=== PATIENT | female | born 1975 | race Caucasian/White ===

== ENCOUNTER 2019-12-23 11:32 | Outpatient (CLI) | payer OTHER, SELFPAY ==
--- NOTE | 2019-12-23 12:00 | CT_ITS ---
WS: [id number] CT CERVICAL SPINE HISTORY: paresthesias both hands TECHNIQUE: Contiguous 2.5 mm axial imaging performed through the entire cervical spine. Sagittal and coronal reformats also performed. All CT scans at [facility] use at least one of these do se optimization techniques: automated exposure control; mA and/or kV adjustment per patient size (inc ludes targeted exams where dose is matched to clinical indication); or iterative reconstruction. DLP: 1606.48 mGycm COMPARISON: 11/10/2016 Prior anterior cervical fusion from C4 through C6. Interbody spacers at C4-5 and C5-6. Fusion across the interbody spacers is complete since 2016. No lucency around the screws or fracture is identified. No subsidence of interbody spacers. Mild straightening of the normal cervical lordosis. Craniocervical junction is normal. Alignment of C1 and C2 is intact. There is a very slight RIGHT con vex curvature of the cervical spine. C2-C3: Normal. C3-C4: Small vertebral body osteophytes without significant stenosis. C4-C5: Small vertebral body osteophytes with minimal narrowing of the LEFT foramen. No change since t he prior study. C5-C6: Mild osteophytic ridging with mild bilateral foraminal narrowing. Minimal progression if any s matilde the prior study. C6-C7: Mild osteophytic ridging. No significant stenosis. C7-T1: Normal. Soft tissues are normal. Lung apices are clear. CT/CT cervical spin wo con* [id number] IMPRESSION: 1. Prior anterior cervical fusion with interbody spacers from C4 to C6 is inta ct. No complications are evident. 2. Small vertebral body osteophytes from C3-4 through C6-7. No significant derek nosis. Mild LEFT foraminal narrowing at C4-5 and bilaterally at C5-6. No signif icant progression since the prior study. No disc herniations.
== END 2019-12-23 11:33 | disposition home or self-care (01) ==
LOC: RADWPI 11:35
PROVIDERS: Family Provider Family Medicine; PCP Family Medicine; Visit Provider Family Medicine
DX: R20.2 Paresthesia of skin (principal); Z98.1 Arthrodesis status; M25.78 Osteophyte, vertebrae
CPT/HCPCS: 72125

== ENCOUNTER 2020-01-26 11:24 | Outpatient (CLI) | payer OTHER, SELFPAY ==
--- NOTE | 2020-01-26 11:42 | MR_ITS ---
WS: [id number] MRI CERVICAL SPINE HISTORY: Neck pain. S/P fusion/fixation COMPARISON: 04/11/2016 Straightening of the normal cervical lordosis. Prior anterior cervical fusion from C4 through C6. No edema around the hardware. Signal within the cervical cord is normal. Visualized posterior fossa is unremarkable. Craniocervical junction, C1 and C2 relationship, odontoid process and soft tissues are normal. C2-C3: Normal. C3-C4: Mild annular disc bulging without significant stenosis. C4-C5: Mild osteophytic ridging. Small osteophyte encroaches into the LEFT foramen but no significant stenosis. Mild LEFT foraminal stenosis. C5-C6: Small vertebral body osteophytes without stenosis. Mild bilateral foraminal stenosis due to os teophyte disease. C6-C7: Mild osteophytic ridging with a very shallow central disc protrusion. C7-T1: Normal. Paraspinal soft tissue are normal. MR/MR cervical spin wo con* [id number] IMPRESSION: 1. Prior anterior cervical fusion with interbody spacers from C4 through C6. 2. Mild straightening of the normal cervical lordosis. 3. Mild annular disc bulging and osteophytic ridging at C3-4 with very slight effacement of ventral CSF. 4. Small LEFT paracentral disc protrusion at C6-7. 5. Small osteophyte encroachment into the LEFT C4-5 foramen without significan t stenosis.
== END 2020-01-26 11:25 | disposition home or self-care (01) ==
LOC: RADSHAW 11:25
PROVIDERS: Family Provider Family Medicine; PCP Family Medicine; Visit Provider Licensed Practical Nurse
DX: M96.1 Postlaminectomy syndrome, not elsewhere classified (principal); Z98.1 Arthrodesis status; M50.223 Other cervical disc displacement at C6-C7 level; M25.78 Osteophyte, vertebrae
CPT/HCPCS: 72141

== ENCOUNTER 2020-01-26 12:51 | Outpatient (CLI) | payer OTHER, SELFPAY ==
--- NOTE | 2020-01-26 12:56 | XR_ITS ---
WS: [id number] XR cervical spine fl/ex [id number] REASON FOR EXAM: Neck pain FINDINGS: There is evidence of anterior fusion C4-C5-C6 with interspinal fusion satisfactory aligned. The flexion extension views show motion in this area. XR/XR cervical spine fl/ex [id number] IMPRESSION: Anterior fusion C4-C5-C6 There is motion in flexion and extension.
== END 2020-01-26 12:52 | disposition home or self-care (01) ==
LOC: RAD 12:53
PROVIDERS: Family Provider Family Medicine; PCP Family Medicine; Visit Provider Licensed Practical Nurse
DX: M96.1 Postlaminectomy syndrome, not elsewhere classified (principal); Z98.1 Arthrodesis status
CPT/HCPCS: 72040

== ENCOUNTER 2021-02-24 15:40 | Emergency (ER) | payer BC, SELFPAY ==
[2021-02-24 15:41] VITALS: BP 128/78; PULSE 124; RESP 22; O2SAT 95; BMI 32.5
--- NOTE | 2021-02-24 15:42 | XRR_ITS ---
PROCEDURE INFORMATION: Exam: XR Chest Exam date and time: 02/24/2021 3:47 PM Age: 45 years old Clinical indication: Other: Allergic reaction; Additional info: Dyspnea TECHNIQUE: Imaging protocol: XR of the chest Views: 1 view. Total images: 1 COMPARISON: CR Chest 1 [place] [id number] 12/12/2015 8:32 PM FINDINGS: Lungs: No visible active interstitial or alveolar airspace disease. Pleural spaces: Unremarkable. No pleural effusion. No pneumothorax. Heart/Mediastinum: Unremarkable. No cardiomegaly. Bones/joints: Cervical fusion. XR/XR chest 1V portable [id number] IMPRESSION: Nonacute.
--- NOTE | 2021-02-24 15:50 | ED_ITS ---
HPI - Allergic Reaction General: Chief complaint: Allergic Reaction Stated complaint: allergic reaction Time Seen by Provider: 02/24/21 15:42 History of Present Illness: HPI narrative: Is a 45-year-old female with past medical history allergy to amoxicillin comes to the ER after she was given Augmentin for a left ear infection less than an hour ago. She took the Augmentin and within 10 to 15 minutes she began to feel itchy and developed a severe rash and a few minutes later difficulty breathing. She took 225 mg Benadryl's around that time and came to the ER. On arrival she had difficulty speaking and had a diffuse erythematous rash and was itching. She thinks it has been 20 to 30 minutes since she took the Benadryl. A few minutes after she arrived in the ER her symptoms greatly improved likely the Benadryl she took is kicking in. She is now talking full sentences and has no breathing difficulty whatsoever. She still has a rash which is improving some already. MD complaint: allergic reaction and hives Onset (ago): minute(s) (30) Exposure: medication Associated symptoms: Reports no associated symptoms, difficulty breathing, hoarseness, itching and rash; Deny abdominal pain, dizziness or tongue swelling Severity: severe Treatment prior to arrival: benadryl Previous Allergic Reaction History: anaphylaxis and angioedema Review of Systems General: Reports: 10 or more systems reviewed and unremarkable except in HPI and below Const: Denies: fatigue Eyes: Denies: change in vision, blurry vision or eye redness ENMT: Reports: hoarseness Card: Denies: chest pain, palpitations, irregular heart rhythm, edema, dyspnea on exertion or orthopnea Resp: Denies: dyspnea, productive cough or non-productive cough GI: Denies: abdominal pain, diarrhea or GI cramping : Denies: flank pain, difficulty voiding, urinary frequency or urinary urgency Musc: Denies: neck pain, back pain, extremity pain, joint pain, joint redness, limited range of motion or muscle weakness Skin/Breast: Denies: rash, pruritus, erythema, skin pain or skin tenderness Neuro: Denies: headache(s), numbness in extremities, weakness in extremities, sensory changes, difficulty walking, dizziness, confusion or Slurred speech present Psych: Denies: anxiety or depression Endo: Denies: polyuria All/Imm: Reports: urticaria and throat swelling; Denies: tongue swelling PFSH ED PFSH: Medical History History of breast lump Surgical History History of delivery History of cholecystectomy History of oophorectomy right ear History of spinal fusion 09/03/2016 Dr. 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 She has a very hoarse voice on arrival and appears to be in mild to moderate respiratory distress. Within a few minutes her respiratory distress resolved and she was speaking full sentences. Also her rash is moderately better. Likely the Benadryl she took is kicking in Const: COMMON NORMALS: average body habitus, patient oriented x3, alert and well nourished GENERAL APPEARANCE: well kempt, well developed, in distress and ill appearing ORIENTATION/CONSCIOUSNESS: Yes awake, Yes oriented to person, Yes oriented to place and Yes oriented to time HENMT: COMMON NORMALS: normocephalic, external ears normal and Normal external nose present HEAD & SCALP: normal to inspection and normocephalic NOSE: Normal external nose present EXTERNAL EAR: Yes external ears normal MOUTH: Normal oral and palatal mucosa present THROAT: posterior oropharynx normal Eye: COMMON NORMALS: Equal, round and reactive pupils present and EOMs intact bilaterally GENERAL EYE: appearance normal, both eyes and all related structures PUPIL: Yes Equal, round and reactive pupils present Neck/C-Spine: COMMON NORMALS: full ROM, no lymphadenopathy, no meningeal signs and no JVD GENERAL: Yes normal visual inspection Lymph: LYMPHATIC: no lymphadenopathy noted Chest: COMMONS NORMALS: normal inspection of the chest and normal palpation of entire chest wall Resp: COMMON NORMALS: normal respiratory effort, No retractions, No use of accessory muscles and percussion normal EFFORT & INSPECTION: Yes able to speak in complete sentences AUSCULTATION: diminished lung sounds PERCUSSION: percussion normal Cardio: COMMON NORMALS: no JVD, regular rate, regular rhythm, S1 normal heart sound present, S2 normal heart sound present and Peripheral pulses 2+ throughout RATE: regular rate RHYTHM: regular rhythm HEART SOUNDS: S1 normal heart sound present and S2 normal heart sound present PERIPHERAL PULSES: Peripheral pulses 2+ throughout GI: COMMON NORMALS: Normal to inspection, nondistended, normoactive bowel sounds present, Soft to palpation, non-tender and no masses INSPECTION: Yes normal to inspection PALPATION: Yes Soft to palpation : COMMON NORMALS: Yes no CVA tenderness BLADDER/KIDNEY EXAM: Yes no CVA tenderness Back/Pelvis: COMMON NORMALS: no CVA tenderness, thoracic and lumbar spine normal to inspection, no thoracic nor lumbar tenderness and thoraco-lumbar ROM normal Extremity: COMMON NORMALS: normal to inspection, full ROM, capillary refill normal, no joint enlargement and no pedal edema GENERAL: Yes normal exam except as noted Neuro: COMMON NORMALS: patient oriented x3, CN's II-XII intact bilaterally, moves all extremities, no focal motor deficits, no sensory deficits noted and gait normal SENSORIUM/ORIENTATION: Yes alert, Yes oriented to person, Yes oriented to place and Yes oriented to time MENINGEAL SIGNS: Yes no meningeal signs Psych: COMMON NORMALS: mental status grossly normal, Normal thought process present, cooperative, normal affect and speech normal APPEARANCE: Yes well kempt ATTITUDE: Yes calm SPEECH: Yes normal speech THOUGHT PROCESS: Normal thought process present Skin: COMMON NORMALS: no rashes or lesions noted GENERAL SKIN EXAM: no rashes or lesions noted Course Vital Signs: Vital signs: Vital Signs Pulse Rate 97 02/24/21 17:56 Respiratory Rate 17 02/24/21 17:52 Blood Pressure 128/78 02/24/21 15:41 Pulse Oximetry 97 02/24/21 17:52 MDM - Allergic Reaction MDM Narrative: Medical decision making narrative: Early after arrival the patient's 50 mg of Benadryl she took orally before her arrival started to kick in and her shortness of breath resolved quickly. She was given more IV Benadryl, famotidine, Solu-Medrol, and a liter of fluids. Her symptoms completely resolved and she is at her baseline. Recommended she never take amoxicillin or Augmentin again. Discussed how to use the EpiPen with her on discharge. She will also keep Benadryl with her for future episodes and to treat today's episode. Lab Data: Labs: Lab Results 02/24/21 02/24/21 02/24/21 Range/Units 16:04 16:04 16:04 WBC 14.8 H (4.0-10.0) 10^3/ uL RBC 4.67 (4.1-5.3) 10^6/u L Hgb 14.2 (11.5-15.3) g/dL Hct 43.2 (37.0-47.0) % MCV 92.5 (81-99) fL MCH 30.4 (28.0-34.0) pg MCHC 32.9 (30.0-36.0) g/dL RDW 12.7 (12.1-15.1) % Plt Count 254 (130-400) 10^3/c mm MPV 12.3 H (7.4-10.4) fL Neut % (Auto) 49.2 % Lymph % (Auto) 42.8 % [place] % (Auto) 6.6 % Eos % (Auto) 0.5 % Baso % (Auto) 0.5 % Neut # (Auto) 7.26 (1.8-7.7) 10^3/u L Lymph # (Auto) 6.3 H (0.8-4.8) 10^3/u L [place] # (Auto) 1.0 H (0.2-0.9) 10^3/u L Eos # (Auto) 0.1 (0.0-0.8) 10^3/u L Baso # (Auto) 0.1 (0.0-0.1) 10^3/u L Nucleated RBC % (a uto) 0 % Nucleated RBCs # 0.0 /100WBC Sodium 139 (136-145) mmol/L Potassium 3.9 (3.5-5.1) mmol/L Chloride 105 (98-107) mmol/L Carbon Dioxide 21 L (22-29) mmol/L Anion Gap 16.9 (5-19) BUN 14 (6-20) mg/dL Creatinine 0.9 (0.5-0.9) mg/dL GFR Calculation 68.3 L (90-130) mL/min Glucose 124 H (65-115) mg/dL Calculated Osmolal ity 290 (285-295) mOsm/k g Lactate 2.9 H (0.5-2.2) mmol/L Calcium 9.6 (8.5-10.5) mg/dL Total Bilirubin 0.2 (0.15-1.2) mg/dL AST 17 (0-32) U/L ALT 15 (0-33) U/L Alkaline Phosphata se 60 (35-105) IU/L Total Protein 7.2 (6.6-8.7) g/dL Albumin 4.3 (3.5-5.2) g/dL Globulin 2.9 (1.3-4.6) g/dL Discharge Plan Discharge Patient Disposition: Home Clinical Impression: Angioedema Condition: Stable Prescriptions: New Medrol (Jorge Alberto) 4 mg tablets,dose pack See Rx Instructions .ROUTE .COMPLEX Qty: 21 RF: 0 EpiPen 2-Jorge Alberto 0.3 mg/0.3 mL auto-injector 0.3 mg IM Q10M PRN (Reason: anaphylaxis) Qty: 2 RF: 0 No Action [id number] 2-200 gram-mcg tablet,chewable PO RF: 0 melatonin 1 mg tablet 1 mg PO ONCE RF: 0 acetaminophen [Tylenol] 325 mg capsule 325 mg PO ONCE PRNRF: 0 baclofen 20 mg tablet 20 mg PO BID 30 Days Qty: 60 RF: 3 Estroven Cmplt Menopause Rlf 4 mg tablet 4 mg PO DAILY RF: 0 triamcinolone acetonide 0.1 % cream 1 applic topical BID Qty: 80 RF: 0 methylprednisolone [Medrol (Jorge Alberto)] 4 mg tablets,dose pack See Rx Instructions PO PER PKG DIR Qty: 21 RF: 0 Discharge Orders: Discharge ED (Routine); Ordered 02/24/21 Ordered By: Otis Blackwood Referrals: Mateus Murrieta MD [Primary Care Provider] - Discharge Diet: Advance as tolerated Discharge Activity: Resume usual activity Patient Instructions: Angioedema (ED), Opioid Safety Activity Restrictions/Additional Instructions: You have had a severe allergic reaction called angioedema because it involves yo ur airway. Please keep Benadryl handy with you and the EpiPen must be brought with you everywhere. Avoid amoxicillin and Augmentin for the rest of your life. You may take Benadryl today every 4 hours to help with your symptoms and I am prescribing you a steroid pack to help with your symptoms as well. Please return to the ER with any worsening symptoms follow-up with your primary care physician in a couple days to monitor improvement and return to the ER at anytime with worsening symptoms. 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
[2021-02-24 15:55] VITALS: PULSE 108; RESP 20; O2SAT 95
[2021-02-24] MEDS: famotidine 20 mg/2 mL INJ 40 MG IVP (15:57)
[2021-02-24] MEDS: sodium chloride 0.9% 1,000 ML 999 ML IV (15:58)
[2021-02-24] MEDS: diphenhydrAMINE 50 mg/mL SDV 1mL 25 MG IVP (16:00)
[2021-02-24 16:01] VITALS: PULSE 95; RESP 20; O2SAT 95
[2021-02-24 16:20] LABS: Basophils # 0.1 10^3/uL (0.0-0.1); Basophils % 0.5 %; Eosinophils # 0.1 10^3/uL (0.0-0.8); Eosinophils % 0.5 %; Hematocrit 43.2 % (37.0-47.0); Hemoglobin 14.2 g/dL (11.5-15.3); Lymphocytes # 6.3 10^3/uL (0.8-4.8); Lymphocytes % 42.8 %; Mean Corpuscular HGB Conc 32.9 g/dL (30.0-36.0); Mean Corpuscular Hemoglobin 30.4 pg (28.0-34.0); Mean Corpuscular Volume 92.5 fL (81-99); Mean Platelet Volume 12.3 fL (7.4-10.4); Monocytes % 6.6 %; Neutrophils # 7.26 10^3/uL (1.8-7.7); Neutrophils % 49.2 %; Nucleated Red Blood Cells % 0 %; Platelet Count 254 10^3/cmm (130-400); Red Blood Count 4.67 10^6/uL (4.1-5.3); Red Cell Distribution Width 12.7 % (12.1-15.1); White Blood Count 14.8 10^3/uL (4.0-10.0)
[2021-02-24 16:37] LABS: Alanine Aminotransferase 15 U/L (0-33); Albumin Level 4.3 g/dL (3.5-5.2); Alkaline Phosphatase 60 IU/L (35-105); Anion Gap 16.9 (5-19); Aspartate Amino Transferase 17 U/L (0-32); Blood Urea Nitrogen 14 mg/dL (6-20); Calcium 9.6 mg/dL (8.5-10.5); Carbon Dioxide 21 mmol/L (22-29); Chloride 105 mmol/L (98-107); Globulin 2.9 g/dL (1.3-4.6); Glomerular Filtration Rate 68.3 mL/min (90-130); Glucose 124 mg/dL (65-115); Osmolality Calculated 290 mOsm/kg (285-295); Potassium 3.9 mmol/L (3.5-5.1); Sodium 139 mmol/L (136-145); Total Bilirubin 0.2 mg/dL (0.15-1.2); Total Protein 7.2 g/dL (6.6-8.7)
[2021-02-24 16:38] LABS: Lactate (Lactic Acid level) 2.9 mmol/L (0.5-2.2)
[2021-02-24 17:52] VITALS: PULSE 100; RESP 17; O2SAT 97
[2021-02-24 17:56] VITALS: PULSE 97
[2021-02-24 18:01] VITALS: BP 134/80; PULSE 102; RESP 16; O2SAT 94
== END 2021-02-24 18:01 | disposition home or self-care (01) ==
PROVIDERS: Emergency Provider Family Medicine; PCP Family Medicine
DX: T78.3XXA Angioneurotic edema, initial encounter (principal); F17.210 Nicotine dependence, cigarettes, uncomplicated
CPT/HCPCS: 71045; 80053; 83605; 85025; 94640; 96361; 96374; 96375; 99284; J1200; J2930; J3490; J7030; J7611

== ENCOUNTER → 2021-02-27 11:59 | Outpatient (BNVA) | payer BC, SELFPAY | PROVIDERS: PCP Family Medicine; Visit Provider Family Medicine | DX: E03.9 Hypothyroidism, unspecified (principal); M54.12 Radiculopathy, cervical region; J30.9 Allergic rhinitis, unspecified; E66.9 Obesity, unspecified | CPT/HCPCS: 84439; 84443; 84481 ==

== ENCOUNTER 2021-07-08 07:44 | Outpatient (CLI) | payer OTHER, SELFPAY ==
[2021-07-08 08:52] LABS: Cholesterol 201 mg/dL (0-200); HDL Cholesterol 41 mg/dL (60-100); LDL Cholesterol Calculated 141 mg/dL (50-129); LDL HDL Ratio 3.44 RATIO (0.00-3.22); Triglycerides 95 mg/dL (0-150)
[2021-07-08 09:51] LABS: Cortisol Random 0.64 ug/dL (2.47-19.5)
== END 2021-07-08 07:45 | disposition home or self-care (01) ==
PROVIDERS: PCP Family Medicine; Visit Provider Internal Medicine
DX: E04.9 Nontoxic goiter, unspecified (principal); R63.5 Abnormal weight gain
CPT/HCPCS: 36415; 80061; 82533

== ENCOUNTER 2021-07-31 08:16 | Outpatient (CLI) | payer OTHER, SELFPAY ==
--- NOTE | 2021-07-31 12:45 | US_ITS ---
WS: [id number] ULTRASOUND THYROID TECHNIQUE: Ultrasound of the thyroid. CLINICAL INFORMATION: goiter COMPARISON: None. FINDINGS: Thyroid: Enlarged thyroid with diffuse heterogeneous thyroid echotexture compatible with goiter. Right thyroid lobe: 4.8 cm x 1.9 cm x 1.7 cm Left thyroid lobe: 5.0 cm x 2.2 cm x 2.2 cm. Dominant nodule left thyroid measuring 11 x 7 x 9 mm. Recommend 12 month follow-up. A few tiny cystic lesions bilaterally are incidental. Isthmus: 0.4 mm. Cervical lymphadenopathy: None. US/US thyroid [id number] IMPRESSION: 1. Enlarged thyroid with diffuse heterogeneous echotexture. Findings are fifi tible with goiter. 2. Dominant solid nodule left thyroid measuring 11 x 7 x 9 mm. Recommend 12 mo nth follow-up.
== END 2021-07-31 08:17 | disposition home or self-care (01) ==
LOC: US 08:18
PROVIDERS: PCP Family Medicine; Visit Provider Internal Medicine
DX: E04.9 Nontoxic goiter, unspecified (principal); E04.1 Nontoxic single thyroid nodule
CPT/HCPCS: 76536

== ENCOUNTER 2021-09-26 09:15 | Outpatient (CLI) | payer OTHER, SELFPAY ==
[2021-09-26 10:24] LABS: Free T4 Free Thyroxine 1.19 ng/dL (0.82-1.77); Thyroid Stimulating Hormone 0.72 uIU/mL (0.27-4.20)
[2021-09-27 08:09] LABS: T3 Total 142 ng/dL (76-181)
[2021-09-27 15:48] LABS: Thyroglobulin AB <1 IU/mL (< or = 1); Thyroid Peroxidase Antobodies 1 IU/mL (<9)
[2021-10-02 18:27] LABS: TSH Receptor Binding Antibody <1.00 IU/L (< OR = 2.00)
== END 2021-09-26 09:16 | disposition home or self-care (01) ==
LOC: LAB 09:18
PROVIDERS: PCP Family Medicine; Visit Provider Internal Medicine
DX: E04.9 Nontoxic goiter, unspecified (principal); E78.49 Other hyperlipidemia; R63.5 Abnormal weight gain
CPT/HCPCS: 36415; 83516; 84439; 84443; 84480; 86376; 86800

== ENCOUNTER 2022-05-20 09:22 | Emergency (ER) | payer SELFPAY ==
--- NOTE | 2022-05-20 09:23 | ECG_ITS ---
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 Measurements Intervals Lorraine Rate: 118 P: 59 WI: 128 QRS: 55 QRSD: 97 T: 54 QT: 340 QTc: 477 Interpretive Statements SINUS TACHYCARDIA INCOMPLETE RIGHT BUNDLE BRANCH BLOCK [90+ ms QRS DURATION, TERMINAL R IN V1/V2, 40+ ms S IN I/aVL/V4/V5/V6] ABNORMAL RHYTHM ECG Compared to ECG 12/12/2015 19:53:20 Incomplete right bundle-branch block now present T-wave abnormality no longer present Electronically Signed On 05-20-2022 20:05:49 CDT by Nica Lopez M.D. [id number]
--- NOTE | 2022-05-20 09:23 | XR_ITS ---
WS: [id number] XR chest 1V portable [id number] REASON FOR EXAM: chest pain FINDINGS: Chest is unchanged compared to previous examination of 02/24/2021. The heart and mediastinum are within normal limits. Calcified granulomatous disease in both hemithoraces. No active pulmonary parenchymal pleural disease is noted. Bony thorax is intact. XR/XR chest 1V portable [id number] IMPRESSION: No acute chest abnormality.
[2022-05-20 09:31] VITALS: BP 132/89; PULSE 115; RESP 16; O2SAT 100; BMI 27.4
--- NOTE | 2022-05-20 09:43 | ED_ITS ---
HPI - Chest Pain General: Chief Complaint: Chest Pain Stated Complaint: chest pain Time Seen by Provider: 05/20/22 09:27 Source: patient Mode of arrival: ambulatory Limitations: no limitations History of Present Illness: 46-year-old female presents emergency room with complaint of chest pain. Patient states she had substernal chest pain yesterday as well as today comes on while at rest. Patient has no known history of diabetes or coronary artery disease she is on Victoza for weight loss. She giovanny es use of any stimulants recently. Is exacerbates or relieves her chest pain. It is associated with mild shortness of breath. MD complaint: chest pain Onset (ago): hour(s) Timing of current episode: episodic Prior episodes: Yes Onset: during rest Pain location: substernal Pain radiation: none Severity: moderate Quality: tightness, aching and heaviness Relieving factors: nothing Exacerbating factors: nothing Associated symptoms: Reports sense of impending doom; Deny abdominal pain, diaphoresis, dyspnea, fever(s), leg edema, nausea, palpitations, syncope or vomiting Treatment prior to arrival: none Review of Systems Const: Denies: fever(s), chills or diaphoresis ENMT: Denies: throat pain, ear or mastoid pain, nasal discharge or nasal congestion Card: Reports: chest pain; Denies: palpitations, irregular heart rhythm, edema, swelling of feet/ankles or syncope Resp: Denies: dyspnea GI: Denies: abdominal pain, nausea, vomiting, bloating or GI cramping : Denies: flank pain, difficulty voiding, dysuria, urinary frequency or urinary urgency Skin/Breast: Denies: rash or pruritus Psych: Reports: anxiety PFSH ED PFSH: Medical History History of breast lump Surgical History History of delivery History of cholecystectomy History of oophorectomy right ear History of spinal fusion 09/03/2016 Dr. 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 History of recent travel: No Physical Exam Const: GENERAL APPEARANCE: cooperative and comfortable ORIENTATION/CONSCIOUSNESS: Yes awake, Yes oriented to person, Yes oriented to place and Yes oriented to time HENMT: COMMON NORMALS: normocephalic, atraumatic and hearing grossly normal bilaterally HEAD & SCALP: normocephalic and atraumatic Neck/C-Spine: COMMON NORMALS: no JVD Lymph: LYMPHATIC: no lymphadenopathy noted and no lymphedema noted Resp: COMMON NORMALS: normal respiratory effort, No retractions, No use of accessory muscles and clear to auscultation bilaterally AUSCULTATION: clear to auscultation bilaterally Cardio: COMMON NORMALS: no JVD, regular rate, regular rhythm and No murmurs present (Cardio) RATE: regular rate RHYTHM: regular rhythm GI: COMMON NORMALS: Soft to palpation and No hepatosplenomegaly present AUSCULTATION: Yes normoactive bowel sounds PALPATION: Yes Soft to palpation, No Tenderness to palpation present (GI), No Guarding due to palpation present (GI) and Yes No hepatosplenomegaly present Extremity: COMMON NORMALS: normal to inspection, capillary refill normal, no clubbing, cyanosis or edema, no calf tenderness and no pedal edema Neuro: SENSORIUM/ORIENTATION: Yes oriented to person, Yes oriented to place and Yes oriented to time Skin: COMMON NORMALS: no rashes or lesions noted GENERAL SKIN EXAM: no rashes or lesions noted Course Vital Signs: Vital signs: Vital Signs Pulse Rate 108 H 05/20/22 10:04 Respiratory Rate 16 05/20/22 09:31 Blood Pressure 132/89 05/20/22 10:04 Pulse Oximetry 97 05/20/22 10:04 MDM - Chest Pain Medical Decision Making Labs imaging reviewed. EKG unremarkable troponin delta unremarkable. Will discharge patient home set up for an outpatient stress test no change in medications at this time. Medical Records I reviewed the patient's medical records. Lab Data I reviewed the patient's lab results. : 05/20/22 09:41 05/20/22 09:41 Radiology Impressions Chest X-Ray 05/20/22 09:23 IMPRESSION: No acute chest abnormality. Laboratory Results WBC 8.7 10^3/uL (4.0-10.0) 05/20/22 09:41 RBC 4.51 10^6/uL (4.1-5.3) 05/20/22 09:41 Hgb 14.1 g/dL (11.5-15.3) 05/20/22 09:41 Hct 40.9 % (37.0-47.0) 05/20/22 09:41 MCV 90.7 fl (81-99) 05/20/22 09:41 MCH 31.3 pg (28.0-34.0) 05/20/22 09:41 MCHC 34.5 g/dL (30.0-36.0) 05/20/22 09:41 RDW 12.9 % (12.1-15.1) 05/20/22 09:41 Plt Count 152 10^3/cmm (130-400) 05/20/22 09:41 MPV 11.9 fL (7.4-10.4) H 05/20/22 09:41 Neut % (Auto) 79.7 % 05/20/22 09:41 Lymph % (Auto) 14.6 % 05/20/22 09:41 [place] % (Auto) 4.0 % 05/20/22 09:41 Eos % (Auto) 1.0 % 05/20/22 09:41 Baso % (Auto) 0.5 % 05/20/22 09:41 Neut # (Auto) 6.96 10^3/uL (1.8-7.7) 05/20/22 09:41 Lymph # (Auto) 1.3 10^3/uL (0.8-4.8) 05/20/22 09:41 [place] # (Auto) 0.4 10^3/uL (0.2-0.9) 05/20/22 09:41 Eos # (Auto) 0.1 10^3/uL (0.0-0.8) 05/20/22 09:41 Baso # (Auto) 0.0 10^3/uL (0.0-0.1) 05/20/22 09:41 Nucleated RBC % (auto) 0 % 05/20/22 09:41 Nucleated RBCs # 0.0 /100WBC 05/20/22 09:41 Sodium 136 mmol/L (136-145) 05/20/22 09:41 Potassium 4.7 mmol/L (3.5-5.1) 05/20/22 09:41 Chloride 104 mmol/L (98-107) 05/20/22 09:41 Carbon Dioxide 21 mmol/L (22-29) L 05/20/22 09:41 Anion Gap 15.7 (5-19) 05/20/22 09:41 BUN 8 mg/dL (6-20) 05/20/22 09:41 Creatinine 0.9 mg/dL (0.5-0.9) 05/20/22 09:41 GFR Calculation 68.0 mL/min (90-130) L 05/20/22 09:41 Glucose 107 mg/dL (65-115) 05/20/22 09:41 Calculated Osmolality 281 mOsm/kg (285-295) L 05/20/22 09:41 Calcium 9.1 mg/dL (8.5-10.5) 05/20/22 09:41 Total Bilirubin 0.2 mg/dL (0.15-1.2) 05/20/22 09:41 AST 17 U/L (0-32) 05/20/22 09:41 ALT 9 U/L (0-33) 05/20/22 09:41 Alkaline Phosphatase 52 IU/L (35-105) 05/20/22 09:41 Troponin T Baseline 6 ng/L (0-10) 05/20/22 09:41 Troponin T 120 Minute 6.00 ng/L (0-10) 05/20/22 12:00 Delta Troponin T 0 ABS# (0-10) 05/20/22 12:00 Total Protein 7.0 g/dL (6.6-8.7) 05/20/22 09:41 Albumin 4.2 g/dL (3.5-5.2) 05/20/22 09:41 Globulin 2.8 g/dL (1.3-4.6) 05/20/22 09:41 Discharge Plan Discharge Patient Disposition: Home Clinical Impression: Chest pain Condition: Stable Prescriptions: New aspirin 81 mg tablet,delayed release (DR/EC) 81 mg PO DAILY Qty: 30 0RF No Action melatonin 1 mg tablet 1 mg PO BEDTIME PRN (Reason: Sleep) 0RF acetaminophen [Tylenol] 325 mg capsule 325 mg PO Q6H PRN (Reason: Pain) 0RF Estroven Cmplt Menopause Rlf 4 mg tablet 4 mg PO DAILY 0RF escitalopram oxalate [Lexapro] 10 mg tablet 10 mg PO DAILY Qty: 90 2RF Victoza 3-Jorge Alberto 0.6 mg/0.1 mL (18 mg/3 mL) pen injector 1.8 mg SUBCUT DAILY Qty: 27 3RF Rx Instructions: 1.8 mg ().3 mL) subcut daily baclofen 20 mg tablet See Rx Instructions .ROUTE .COMPLEX Qty: 90 3RF Dose Instruction: TAKE 1 TABLET BY MOUTH THREE TIMES DAILY NEEDED FOR MUSCLE SPASM Rx Instructions: TAKE 1 TABLET BY MOUTH THREE TIMES DAILY NEEDED FOR MUSCLE SPASM alprazolam 0.5 mg tablet 0.5 mg PO BID PRN (Reason: anxiety) Qty: 45 2RF epinephrine [EpiPen 2-Jorge Alberto] 0.3 mg/0.3 mL auto-injector 0.3 mg IM Q10M PRN (Reason: anaphylaxis) Qty: 2 0RF Rx Instructions: for 2 doses Benadryl 50 mg Capsule 50 mg PO BEDTIME 0RF Discharge Orders: Discharge ED (Routine); Ordered 05/20/22 Ordered By: Eric Cam Referrals: Mateus Murrieta MD [Primary Care Provider] - Discharge Diet: Usual diet Discharge Activity: Limit activity as instructed Patient Instructions: Opioid Safety Activity Restrictions/Additional Instructions: Avoid strenuous activities. Lexiscan sestamibi stress test will be arranged for by case management. Take baby aspirin daily. Follow-up with Dr. Murrieta when stress test is complete.. And worsening or recurrence of symptoms return to the emergency room. Coding Level of Care Code ED Nutritional Health Coach for Nolan Fwrossy Exam Comprehensive
[2022-05-20 09:54] LABS: Basophils % 0.5 %; Eosinophils # 0.1 10^3/uL (0.0-0.8); Hematocrit 40.9 % (37.0-47.0); Hemoglobin 14.1 g/dL (11.5-15.3); Lymphocytes # 1.3 10^3/uL (0.8-4.8); Lymphocytes % 14.6 %; Mean Corpuscular HGB Conc 34.5 g/dL (30.0-36.0); Mean Corpuscular Hemoglobin 31.3 pg (28.0-34.0); Mean Corpuscular Volume 90.7 fl (81-99); Mean Platelet Volume 11.9 fL (7.4-10.4); Monocytes # 0.4 10^3/uL (0.2-0.9); Neutrophils # 6.96 10^3/uL (1.8-7.7); Neutrophils % 79.7 %; Nucleated Red Blood Cells % 0 %; Platelet Count 152 10^3/cmm (130-400); Red Blood Count 4.51 10^6/uL (4.1-5.3); Red Cell Distribution Width 12.9 % (12.1-15.1); White Blood Count 8.7 10^3/uL (4.0-10.0)
[2022-05-20 10:04] VITALS: BP 132/89; PULSE 108; O2SAT 97
[2022-05-20 10:11] LABS: Troponin(5th) Baseline 6 ng/L (0-10)
[2022-05-20 10:12] LABS: Alanine Aminotransferase 9 U/L (0-33); Albumin Level 4.2 g/dL (3.5-5.2); Alkaline Phosphatase 52 IU/L (35-105); Blood Urea Nitrogen 8 mg/dL (6-20); Calcium 9.1 mg/dL (8.5-10.5); Carbon Dioxide 21 mmol/L (22-29); Chloride 104 mmol/L (98-107); Globulin 2.8 g/dL (1.3-4.6); Glucose 107 mg/dL (65-115); Osmolality Calculated 281 mOsm/kg (285-295); Sodium 136 mmol/L (136-145); Total Bilirubin 0.2 mg/dL (0.15-1.2)
[2022-05-20 10:23] LABS: Anion Gap 15.7 (5-19); Aspartate Amino Transferase 17 U/L (0-32); Potassium 4.7 mmol/L (3.5-5.1)
--- NOTE | 2022-05-20 11:23 | ECG_ITS ---
[facility] Test Date: 2022-05-20 Pat Name: Angela Templeton Department: Room: Gender: Female Credit Control Clerk: : 1975 Requested By: Nenita Drew Order Number: [id number] Anika MD: Nica Lopez M.D. Measurements Intervals [place] Rate: 95 P: 57 MA: 185 QRS: 35 QRSD: 99 T: 51 QT: 339 QTc: 426 Interpretive Statements SINUS RHYTHM Compared to ECG 05/20/2022 09:30:19 Sinus tachycardia no longer present Incomplete right bundle-branch block no longer present Electronically Signed On 05-20-2022 20:13:37 CDT by Nica Lopez M.D. [id number]
[2022-05-20 12:29] LABS: Troponin 5 2HR Delta 0 ABS# (0-10)
--- NOTE | 2022-05-28 12:17 | DCPLANNER ---
manager employment had message to schedule an outpatient stress test. Patient sees Dr. Murrieta for primary care, manager case management called and spoke with Dr. Toro nurse, who stated that she has spoken with patient. manager employment was told that patient is feeling much better and does not want the stress test at this time. If patient thinks that she may need a stress test, she will contact her primary care physician.
== END 2022-05-20 13:01 | disposition home or self-care (01) ==
PROVIDERS: Physician Assistant; Emergency Provider Family Medicine; PCP Family Medicine
DX: R07.9 Chest pain, unspecified (principal); F17.210 Nicotine dependence, cigarettes, uncomplicated
CPT/HCPCS: 71045; 80053; 84484; 85025; 93005; 99284

== ENCOUNTER 2022-08-28 06:21 | Outpatient (CLI) | payer BC, SELFPAY ==
--- NOTE | 2022-08-28 06:15 | US_ITS ---
WS: [id number] THYROID ULTRASOUND HISTORY: Goiter COMPARISON: 07/31/2021 Right lobe: 2.4 cm x 1.9 cm x 5.1 cm (w x ap x l). Volume: 12.0 cm3. Very mildly enlarged heterogeneous thyroid. There are a few very small ill-defined nodules throughout the gland. No suspicious mass or echogenic foci. Left lobe: 2.4 cm x 2.0 cm x 5.4 cm (w x ap x l). Volume: 12.9 cm3. Mildly enlarged heterogeneous gland. Hypoechoic nodule measures 8 x 4 x 10 mm in the inferior gland i s similar to the prior study. Additional hypoechoic nodule in the mid gland measures 9 x 7 x 11 mm wi thout change. Isthmus: 0.3 cm. US/US thyroid [id number] IMPRESSION: 1. Very small LEFT thyroid nodules. Benign features. No fine-needle aspiration recommended. 2. Mildly enlarged heterogeneous gland. 3. Yearly thyroid ultrasound evaluation recommended.
== END 2022-08-28 06:22 | disposition home or self-care (01) ==
LOC: RAD 06:22
PROVIDERS: PCP Family Medicine; Visit Provider Internal Medicine
DX: E04.9 Nontoxic goiter, unspecified (principal)
CPT/HCPCS: 76536

== ENCOUNTER 2022-10-29 14:56 | Outpatient (CLI) | payer BC, SELFPAY | END 2022-10-29 14:57 | disposition home or self-care (01) | LOC: SLEEP 10-30 14:58 | PROVIDERS: PCP Family Medicine; Visit Provider Internal Medicine | DX: E04.9 Nontoxic goiter, unspecified (principal); R06.81 Apnea, not elsewhere classified | CPT/HCPCS: G0399 ==

== ENCOUNTER 2023-05-07 17:25 | Emergency (ER) | payer BC, SELFPAY ==
[2023-05-07 17:28] VITALS: BP 120/74; PULSE 86; RESP 18; TEMP 36.4; O2SAT 100; BMI 27.4
--- NOTE | 2023-05-07 17:32 | ECG_ITS ---
[facility] Test Date: 2023-05-07 Pat Name: Angela Templeton Department: Room: Gender: Female Manager Of Training: : 1975 Requested By: Marce Sanford Order Number: [id number] Anika MD: Dalila Brito M.D. Measurements Intervals [place] Rate: 99 P: 67 MS: 161 QRS: 62 QRSD: 85 T: 53 QT: 343 QTc: 442 Interpretive Statements SINUS RHYTHM Compared to ECG 05/20/2022 11:27:49 No significant changes Electronically Signed On 05-08-2023 4:57:25 CDT by Dalila Brito M.D. [id number] f
--- NOTE | 2023-05-07 18:14 | XRR_ITS ---
PROCEDURE INFORMATION: Exam: XR Chest Exam date and time: 05/07/2023 6:30 PM Age: 47 years old Clinical indication: Pain; Chest pressure; Additional info: Chest pain TECHNIQUE: Imaging protocol: Radiologic exam of the chest. Views: 1 view. COMPARISON: CR XR chest 1V portable [id number] 05/20/2022 9:45 AM FINDINGS: Lungs: Unremarkable. No consolidation. Pleural spaces: Unremarkable. No pleural effusion. No pneumothorax. Heart/Mediastinum: Unremarkable. No cardiomegaly. Bones/joints: Postsurgical hardware within the visualized lower cervical spine. Overlying monitor leads. Other findings: No significant change with prior exam. XR/XR chest 1V portable [id number] IMPRESSION: No acute cardiopulmonary abnormality.
--- NOTE | 2023-05-07 18:50 | W.ED.CHESTPA ---
Documented by User: Marce Sanford, CONFLICTS ANALYST-C 05/08/23 02:44 HPI - Chest Pain General: Chief Complaint: Chest Pain Stated Complaint: Chest Pressure, Jaw pain, left arm pain Time Seen by Provider: 05/07/23 18:30 History of Present Illness: Patient is in today with complaints of chest pain. She reports that approximately 430 this afternoon she started having left-sided anterior chest pain felt like it was stabbing straight to her back. She reports there is radiation of pain into the left jaw. She did not have difficulty breathing but feels like everything is heavy . She states that she did speak with Dr. Murrieta earlier in the week at her appointment about having had an episode of chest pain a week ago when she was driving between [facility]. She reports that she had a very similar episode but it got better and she did not go to the hospital. She reports that Dr. Murrieta did give her nitroglycerin at her appointment this week to take should she have a return of chest pain. Patient reports that when the chest pain started today she took 4 baby aspirin and then she took a dose of nitroglycerin and her chest pain did get a little bit better and then she took another dose of nitroglycerin at about 5:53 PM. She reports that she does not have chest pain right now, but everything still feels a little bit heavy. She reports that she had an episode of chest pain a year ago and was seen in the ER and was told that they were going to set her up for stress test but she never heard anything back on that and so that was never done. She does have an upcoming appointment Dr. Coy on June 01. She states that there is no possibility of . She does have heartburn occasionally but she did chew up some and acid today. She denies any history of high cholesterol. She does have a history of SVT. She smokes approximately half a pack per day. Associated symptoms: Deny abdominal pain, dyspnea, fever(s), nausea, palpitations or vomiting Review of Systems Const: Denies: fever(s), chills or body aches Eyes: Denies: change in vision or blurry vision ENMT: Denies: throat pain Card: Reports: chest pain and lightheadedness; Denies: palpitations, irregular heart rhythm, edema, swelling of feet/ankles or dyspnea on exertion Resp: Denies: dyspnea, productive cough or non-productive cough GI: Denies: abdominal pain, nausea or vomiting : Denies: flank pain, difficulty voiding, dysuria, urinary frequency, urinary urgency or urinary hesitancy Musc: Denies: neck pain or back pain Neuro: Denies: headache(s), numbness in extremities or weakness in extremities PFSH ED PFSH: Medical History History of breast lump ROSEMARIE (obstructive sleep apnea) Surgical History History of delivery History of cholecystectomy History of oophorectomy right ear History of spinal fusion 09/03/2016 Dr. 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 Physical Exam Const: COMMON NORMALS: no acute distress, patient oriented x3 and alert GENERAL APPEARANCE: cooperative ORIENTATION/CONSCIOUSNESS: Yes awake, Yes oriented to person, Yes oriented to place and Yes oriented to time HENMT: COMMON NORMALS: EAC's normal and TM's normal bilaterally EXTERNAL AUDITORY CANAL: EAC's normal TYMPANIC MEMBRANE: TM's normal bilaterally MOUTH: Normal oral and palatal mucosa present THROAT: posterior oropharynx normal Eye: COMMON NORMALS: Equal, round and reactive pupils present, EOMs intact bilaterally and conjunctivae normal GENERAL EYE: appearance normal, both eyes and all related structures ALIGNMENT: Yes alignment normal CONJUNCTIVA: Yes conjunctivae normal SCLERA: sclerae normal PUPIL: Yes Equal, round and reactive pupils present Neck/C-Spine: COMMON NORMALS: full ROM Resp: COMMON NORMALS: normal respiratory effort, No retractions, No use of accessory muscles and clear to auscultation bilaterally EFFORT & INSPECTION: Yes symmetric chest movement AUSCULTATION: clear to auscultation bilaterally Cardio: COMMON NORMALS: regular rate, regular rhythm, S1 normal heart sound present and S2 normal heart sound present RATE: regular rate RHYTHM: regular rhythm HEART SOUNDS: S1 normal heart sound present and S2 normal heart sound present GI: COMMON NORMALS: Normal to inspection, nondistended, normoactive bowel sounds present, Soft to palpation, non-tender, No hepatosplenomegaly present, no masses and no bruits INSPECTION: Yes normal to inspection PALPATION: Yes Soft to palpation and Yes No hepatosplenomegaly present : COMMON NORMALS: Yes no CVA tenderness BLADDER/KIDNEY EXAM: Yes no CVA tenderness Back/Pelvis: COMMON NORMALS: no CVA tenderness Neuro: COMMON NORMALS: patient oriented x3 SENSORIUM/ORIENTATION: Yes alert, Yes oriented to person, Yes oriented to place and Yes oriented to time Psych: COMMON NORMALS: cooperative Course Vital Signs: Vital signs: Vital Signs Temperature 97.6 F 05/07/23 17:28 Pulse Rate 85 05/07/23 20:59 Respiratory Rate 16 05/07/23 20:59 Blood Pressure 115/70 05/07/23 20:59 Pulse Oximetry 98 05/07/23 20:59 Oxygen Delivery Me thod Room Air 05/07/23 17:28 MDM - Chest Pain Medical Decision Making Consider chest pain, ACS, anxiety, atypical chest pain Patient's symptoms were resolved upon my initial exam in the ER. Her troponin baseline was within normal limits and her 2-hour repeat troponin was unchanged delta 0. EKGs are unremarkable for acute ST changes. Patient had taken 2 doses of nitroglycerin prior to arrival in the ER and she had already taken 4 baby aspirin. Patient states that she is ready to be discharged right after her second troponin was drawn. She states that she has a follow-up with Dr. Coy and wants to just keep that follow-up. She states that she will return should she have any return of chest pain. Patient is discharged home in stable condition. Lab Data 05/07/23 19:05 05/07/23 19:05 Radiology Impressions Chest X-Ray 05/07/23 18:14 IMPRESSION: No acute cardiopulmonary abnormality. Laboratory Results WBC 7.1 10^3/uL (4.0-10.0) 05/07/23 19:05 RBC 4.52 10^6/uL (4.1-5.3) 05/07/23 19:05 Hgb 13.8 g/dL (11.5-15.3) 05/07/23 19:05 Hct 42.3 % (37.0-47.0) 05/07/23 19:05 MCV 93.6 fl (81-99) 05/07/23 19:05 MCH 30.5 pg (28.0-34.0) 05/07/23 19:05 MCHC 32.6 g/dL (30.0-36.0) 05/07/23 19:05 RDW 12.5 % (12.1-15.1) 05/07/23 19:05 Plt Count 171 10^3/cmm (130-400) 05/07/23 19:05 MPV 11.8 fL (7.4-10.4) H 05/07/23 19:05 Neut % (Auto) 47.4 % 05/07/23 19:05 Lymph % (Auto) 44.1 % 05/07/23 19:05 Zavala % (Auto) 6.4 % 05/07/23 19:05 Eos % (Auto) 1.1 % 05/07/23 19:05 Baso % (Auto) 0.7 % 05/07/23 19:05 Neut # (Auto) 3.38 10^3/uL (1.8-7.7) 05/07/23 19:05 Lymph # (Auto) 3.2 10^3/uL (0.8-4.8) 05/07/23 19:05 [place]ala # (Auto) 0.5 10^3/uL (0.2-0.9) 05/07/23 19:05 Eos # (Auto) 0.1 10^3/uL (0.0-0.8) 05/07/23 19:05 Baso # (Auto) 0.1 10^3/uL (0.0-0.1) 05/07/23 19:05 Nucleated RBC % (auto) 0 % 05/07/23 19:05 Nucleated RBCs # 0.0 /100WBC 05/07/23 19:05 Sodium 137 mmol/L (136-145) 05/07/23 19:05 Potassium 4.1 mmol/L (3.5-5.1) 05/07/23 19:05 Chloride 102 mmol/L (98-107) 05/07/23 19:05 Carbon Dioxide 25 mmol/L (22-29) 05/07/23 19:05 Anion Gap 14.1 (5-19) 05/07/23 19:05 BUN 10 mg/dL (6-20) 05/07/23 19:05 Creatinine 0.9 mg/dL (0.5-0.9) 05/07/23 19:05 GFR Calculation 67.7 mL/min (90-130) L 05/07/23 19:05 Glucose 92 mg/dL (65-115) 05/07/23 19:05 Calculated Osmolality 283 mOsm/kg (285-295) L 05/07/23 19:05 Calcium 9.4 mg/dL (8.5-10.5) 05/07/23 19:05 Total Bilirubin 0.3 mg/dL (0.15-1.2) 05/07/23 19:05 AST 14 U/L (0-32) 05/07/23 19:05 ALT 6 U/L (0-33) 05/07/23 19:05 Alkaline Phosphatase 56 U/L (35-105) 05/07/23 19:05 Troponin T Baseline 6 ng/L (0-10) 05/07/23 19:05 Troponin T 120 Minute 6.00 ng/L (0-10) 05/07/23 20:15 Delta Troponin T 0 ABS# (0-10) 05/07/23 20:15 Total Protein 7.2 g/dL (6.6-8.7) 05/07/23 19:05 Albumin 4.5 g/dL (3.5-5.2) 05/07/23 19:05 Globulin 2.7 g/dL (1.3-4.6) 05/07/23 19:05 HCG, Qual Negative (Negative) 05/07/23:32 Urine Color Yellow (Yellow) 05/07/23 19:32 Urine Appearance Clear (CLEAR) 05/07/23 19:32 Urine pH 6.5 (5-7) 05/07/23 19:32 Ur Specific [place] 1.010 (1.005-1.030) 05/07/23 19:32 Urine Protein Neg (Negative) 05/07/23 19:32 Urine Glucose (UA) Norm (Normal) 05/07/23 19:32 Urine Ketones Negative (Negative) 05/07/23 19:32 Urine Blood Neg (Negative) 05/07/23 19:32 Urine Nitrate Negative (Negative) 05/07/23 19:32 Urine Bilirubin Neg (Negative) 05/07/23 19:32 Urine Urobilinogen Norm mg/dL (Negative) 05/07/23 19:32 Ur Leukocyte Esterase Negative (Negative) 05/07/23 19:32 Discharge Plan Discharge Patient Disposition: Home Clinical Impression: Chest pain Condition: Stable Prescriptions: No Action melatonin 1 mg tablet 1 mg PO BEDTIME PRN (Reason: Sleep) acetaminophen [Tylenol] 325 mg capsule 325 mg PO Q6H PRN (Reason: Pain) Estroven Cmplt Menopause Rlf 4 mg tablet 4 mg PO DAILY epinephrine [EpiPen 2-Jorge Alberto] 0.3 mg/0.3 mL auto-injector 0.3 mg IM Q10M PRN (Reason: anaphylaxis) Qty: 2 0RF Rx Instructions: for 2 doses nitroglycerin 0.4 mg tablet, sublingual 0.4 mg sublingual Q5M PRN (Reason: chest pain) Qty: 30 1RF Rx Instructions: do not exceed 3 doses per episode baclofen 20 mg tablet See Rx Instructions .ROUTE .COMPLEX Qty: 90 3RF Dose Instruction: TAKE 1 TABLET BY MOUTH THREE TIMES DAILY NEEDED FOR MUSCLE SPASM Rx Instructions: TAKE 1 TABLET BY MOUTH THREE TIMES DAILY NEEDED FOR MUSCLE SPASM escitalopram oxalate [Lexapro] 10 mg tablet 10 mg PO DAILY Qty: 90 2RF Victoza 3-Jorge Alberto 0.6 mg/0.1 mL (18 mg/3 mL) pen injector 1.8 mg SUBCUT DAILY Qty: 27 3RF Rx Instructions: OZH 340B alprazolam 0.5 mg tablet 0.5 mg PO BID PRN (Reason: anxiety) Qty: 45 3RF Benadryl 50 mg Capsule 50 mg PO BEDTIME aspirin 81 mg tablet,delayed release (DR/EC) 81 mg PO DAILY Qty: 30 0RF Discharge Orders: Discharge ED (Routine); Ordered 05/07/23 Ordered By: Marce Sanford Referrals: Mateus Murrieta MD [Primary Care Provider] - Discharge Diet: Usual diet Discharge Activity: Resume usual activity Patient Instructions: Chest Pain (ED) Activity Restrictions/Additional Instructions: Your testing tonight in the ER does not indicate an acute cardiac event. Your symptoms resolved and you are ready to be discharged home. You should still follow-up with fisheries technician at your scheduled appointment June 01. Return to the ER should you have any return of chest pain or other concerning symptoms. Continue follow-up with your primary care provider. Coding Level of Care Code ED Retail Salesperson for Chg Fwd Documented by User: Eric Cam, 05/11/23 16:50 HPI - Chest Pain General: Chief Complaint: Chest Pain Stated Complaint: Chest Pressure, Jaw pain, left arm pain Time Seen by Provider: 05/07/23 18:30 PFSH ED PFSH: Medical History History of breast lump ROSEMARIE (obstructive sleep apnea) Surgical History History of delivery History of cholecystectomy History of oophorectomy right ear History of spinal fusion 09/03/2016 Dr. 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 Her troponin baseline was within normal limits and her 2-hour repeat troponin was unchanged delta 0. EKGs are unremarkable for acute ST changes. Patient had taken 2 doses of nitroglycerin prior to arrival in the ER and she had already taken 4 baby aspirin. Patient states that she is ready to be discharged right after her second troponin was drawn. She states that she has a follow-up with Dr. Coy and wants to just keep that follow-up. She states that she will return should she have any return of chest pain. Patient is discharged home in stable condition. Chart reviewed and patient discussed with midlevel. Agree with assessment and plan. Lab Data 05/07/23 19:05 05/07/23 19:05 Radiology Impressions Chest X-Ray 05/07/23 18:14 IMPRESSION: No acute cardiopulmonary abnormality. Laboratory Results WBC 7.1 10^3/uL (4.0-10.0) 05/07/23 19:05 RBC 4.52 10^6/uL (4.1-5.3) 05/07/23 19:05 Hgb 13.8 g/dL (11.5-15.3) 05/07/23 19:05 Hct 42.3 % (37.0-47.0) 05/07/23 19:05 MCV 93.6 fl (81-99) 05/07/23 19:05 MCH 30.5 pg (28.0-34.0) 05/07/23 19:05 MCHC 32.6 g/dL (30.0-36.0) 05/07/23 19:05 RDW 12.5 % (12.1-15.1) 05/07/23 19:05 Plt Count 171 10^3/cmm (130-400) 05/07/23 19:05 MPV 11.8 fL (7.4-10.4) H 05/07/23 19:05 Neut % (Auto) 47.4 % 05/07/23 19:05 Lymph % (Auto) 44.1 % 05/07/23 19:05 Zavala % (Auto) 6.4 % 05/07/23 19:05 Eos % (Auto) 1.1 % 05/07/23 19:05 Baso % (Auto) 0.7 % 05/07/23 19:05 Neut # (Auto) 3.38 10^3/uL (1.8-7.7) 05/07/23 19:05 Lymph # (Auto) 3.2 10^3/uL (0.8-4.8) 05/07/23 19:05 Zavala # (Auto) 0.5 10^3/uL (0.2-0.9) 05/07/23 19:05 Eos # (Auto) 0.1 10^3/uL (0.0-0.8) 05/07/23 19:05 Baso # (Auto) 0.1 10^3/uL (0.0-0.1) 05/07/23 19:05 Nucleated RBC % (auto) 0 % 05/07/23 19:05 Nucleated RBCs # 0.0 /100WBC 05/07/23 19:05 Sodium 137 mmol/L (136-145) 05/07/23 19:05 Potassium 4.1 mmol/L (3.5-5.1) 05/07/23 19:05 Chloride 102 mmol/L (98-107) 05/07/23 19:05 Carbon Dioxide 25 mmol/L (22-29) 05/07/23 19:05 Anion Gap 14.1 (5-19) 05/07/23 19:05 BUN 10 mg/dL (6-20) 05/07/23 19:05 Creatinine 0.9 mg/dL (0.5-0.9) 05/07/23 19:05 GFR Calculation 67.7 mL/min (90-130) L 05/07/23 19:05 Glucose 92 mg/dL (65-115) 05/07/23 19:05 Calculated Osmolality 283 mOsm/kg (285-295) L 05/07/23 19:05 Calcium 9.4 mg/dL (8.5-10.5) 05/07/23 19:05 Total Bilirubin 0.3 mg/dL (0.15-1.2) 05/07/23 19:05 AST 14 U/L (0-32) 05/07/23 19:05 ALT 6 U/L (0-33) 05/07/23 19:05 Alkaline Phosphatase 56 U/L (35-105) 05/07/23 19:05 Troponin T Baseline 6 ng/L (0-10) 05/07/23 19:05 Troponin T 120 Minute 6.00 ng/L (0-10) 05/07/23 20:15 Delta Troponin T 0 ABS# (0-10) 05/07/23 20:15 Total Protein 7.2 g/dL (6.6-8.7) 05/07/23 19:05 Albumin 4.5 g/dL (3.5-5.2) 05/07/23 19:05 Globulin 2.7 g/dL (1.3-4.6) 05/07/23 19:05 HCG, Qual Negative (Negative) 05/07/23 19:32 Urine Color Yellow (Yellow) 05/07/23 19:32 Urine Appearance Clear (CLEAR) 05/07/23 19:32 Urine pH 6.5 (5-7) 05/07/23 19:32 Ur Specific [place] 1.010 (1.005-1.030) 05/07/23 19:32 Urine Protein Neg (Negative) 05/07/23 19:32 Urine Glucose (UA) Norm (Normal) 05/07/23 19:32 Urine Ketones Negative (Negative) 05/07/23 19:32 Urine Blood Neg (Negative) 05/07/23 19:32 Urine Nitrate Negative (Negative) 05/07/23 19:32 Urine Bilirubin Neg (Negative) 05/07/23 19:32 Urine Urobilinogen Norm mg/dL (Negative) 05/07/23 19:32 Ur Leukocyte Esterase Negative (Negative) 05/07/23 19:32 Discharge Plan Discharge Patient Disposition: Home Clinical Impression: Chest pain Condition: Stable Prescriptions: No Action melatonin 1 mg tablet 1 mg PO BEDTIME PRN (Reason: Sleep) acetaminophen [Tylenol] 325 mg capsule 325 mg PO Q6H PRN (Reason: Pain) Estroven Cmplt Menopause Rlf 4 mg tablet 4 mg PO DAILY epinephrine [EpiPen 2-Jorge Alberto] 0.3 mg/0.3 mL auto-injector 0.3 mg IM Q10M PRN (Reason: anaphylaxis) Qty: 2 0RF Rx Instructions: for 2 doses nitroglycerin 0.4 mg tablet, sublingual 0.4 mg sublingual Q5M PRN (Reason: chest pain) Qty: 30 1RF Rx Instructions: do not exceed 3 doses per episode baclofen 20 mg tablet See Rx Instructions .ROUTE .COMPLEX Qty: 90 3RF Dose Instruction: TAKE 1 TABLET BY MOUTH THREE TIMES DAILY NEEDED FOR MUSCLE SPASM Rx Instructions: TAKE 1 TABLET BY MOUTH THREE TIMES DAILY NEEDED FOR MUSCLE SPASM escitalopram oxalate [Lexapro] 10 mg tablet 10 mg PO DAILY Qty: 90 2RF Victoza 3-Jorge Alberto 0.6 mg/0.1 mL (18 mg/3 mL) pen injector 1.8 mg SUBCUT DAILY Qty: 27 3RF Rx Instructions: OZH 340B alprazolam 0.5 mg tablet 0.5 mg PO BID PRN (Reason: anxiety) Qty: 45 3RF Benadryl 50 mg Capsule 50 mg PO BEDTIME aspirin 81 mg tablet,delayed release (DR/EC) 81 mg PO DAILY Qty: 30 0RF Discharge Orders: Discharge ED (Routine); Ordered 05/07/23 Ordered By: Marce Sanford Referrals: Mateus Murrieta MD [Primary Care Provider] - Discharge Diet: Usual diet Discharge Activity: Resume usual activity Patient Instructions: Chest Pain (ED) Activity Restrictions/Additional Instructions: Your testing tonight in the ER does not indicate an acute cardiac event. Your symptoms resolved and you are ready to be discharged home. You should still follow-up with fisheries technician at your scheduled appointment June 01. Return to the ER should you have any return of chest pain or other concerning symptoms. Continue follow-up with your primary care provider. Coding Level of Care Code ED Retail Salesperson for Nolan Wallace
[2023-05-07 19:13] LABS: Basophils # 0.1 10^3/uL (0.0-0.1); Basophils % 0.7 %; Eosinophils # 0.1 10^3/uL (0.0-0.8); Eosinophils % 1.1 %; Hematocrit 42.3 % (37.0-47.0); Hemoglobin 13.8 g/dL (11.5-15.3); Lymphocytes # 3.2 10^3/uL (0.8-4.8); Lymphocytes % 44.1 %; Mean Corpuscular HGB Conc 32.6 g/dL (30.0-36.0); Mean Corpuscular Hemoglobin 30.5 pg (28.0-34.0); Mean Corpuscular Volume 93.6 fl (81-99); Mean Platelet Volume 11.8 fL (7.4-10.4); Monocytes # 0.5 10^3/uL (0.2-0.9); Monocytes % 6.4 %; Neutrophils # 3.38 10^3/uL (1.8-7.7); Neutrophils % 47.4 %; Nucleated Red Blood Cells % 0 %; Platelet Count 171 10^3/cmm (130-400); Red Blood Count 4.52 10^6/uL (4.1-5.3); Red Cell Distribution Width 12.5 % (12.1-15.1); White Blood Count 7.1 10^3/uL (4.0-10.0)
[2023-05-07 19:28] LABS: Alanine Aminotransferase 6 U/L (0-33); Albumin Level 4.5 g/dL (3.5-5.2); Alkaline Phosphatase 56 U/L (35-105); Anion Gap 14.1 (5-19); Aspartate Amino Transferase 14 U/L (0-32); Blood Urea Nitrogen 10 mg/dL (6-20); Calcium 9.4 mg/dL (8.5-10.5); Carbon Dioxide 25 mmol/L (22-29); Chloride 102 mmol/L (98-107); Creatinine Clr Calc Pharmacy 77.0739; Globulin 2.7 g/dL (1.3-4.6); Glomerular Filtration Rate 67.7 mL/min (90-130); Glucose 92 mg/dL (65-115); Osmolality Calculated 283 mOsm/kg (285-295); Potassium 4.1 mmol/L (3.5-5.1); Sodium 137 mmol/L (136-145); Total Bilirubin 0.3 mg/dL (0.15-1.2); Total Protein 7.2 g/dL (6.6-8.7)
[2023-05-07 19:32] VITALS: BP 116/66; PULSE 85; RESP 16; O2SAT 99
[2023-05-07 19:42] LABS: Add Urine Microscopic? NO; Charge for UA Resulting for Rev
[2023-05-07 19:42] LABS: Troponin(5th) Baseline 6 ng/L (0-10)
[2023-05-07 19:47] LABS: Bilirubin Urine Neg (Negative); Blood Urine Neg (Negative); Glucose Urine UA Norm (Normal); Ketones Urine Negative (Negative); Leukocyte Esterase Urine Negative (Negative); Nitrate Urine Negative (Negative); Protein Urine Neg (Negative); Urine Appearance Clear (CLEAR); Urine Color Yellow (Yellow); Urobilinogen Urine Norm (Negative); pH Urine 6.5 (5-7)
[2023-05-07 19:59] LABS: HCG Qualitative Urine. Negative (Negative)
--- NOTE | 2023-05-07 20:14 | ECG_ITS ---
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 Measurements Intervals [place] Rate: 80 P: 67 HI: 179 QRS: 64 QRSD: 93 T: 47 QT: 377 QTc: 437 Interpretive Statements SINUS RHYTHM NONSPECIFIC T-WAVE ABNORMALITY Compared to ECG 05/07/2023 17:32:23 T-wave abnormality now present Electronically Signed On 05-08-2023 4:58:29 CDT by Dalila Brito M.D. [id number]
[2023-05-07 20:48] LABS: Troponin 5 2HR Delta 0 ABS# (0-10)
[2023-05-07 20:59] VITALS: BP 115/70; PULSE 85; RESP 16; O2SAT 98
== END 2023-05-07 21:44 | disposition home or self-care (01) ==
PROVIDERS: Emergency Provider Nurse Practitioner Family; PCP Family Medicine
DX: R07.89 Other chest pain (principal)
CPT/HCPCS: 36415; 71045; 80053; 81003; 81025; 84484; 85025; 93005; 99285

== ENCOUNTER 2023-09-02 06:08 | Outpatient (CLI) | payer BC, SELFPAY ==
--- NOTE | 2023-09-02 06:15 | US_ITS ---
WS: [id number] THYROID ULTRASOUND HISTORY: E04.9 - Nontoxic goiter, unspecified COMPARISON: 08/28/2022 Right lobe: 2.2 cm x 2.0 cm x 5.4 cm (w x ap x l). Volume: 12.8 cm3. Mildly enlarged thyroid. Heterogeneous coarse echotexture throughout the gland. There are a few small colloid type nodules developing within the gland. There are no nodules greater than a centimeter. Va scularity is only mildly increased. Left lobe: 2.4 cm x 2.0 cm x 5.6 cm (w x ap x l). Volume: 13.8 cm3. Mildly enlarged thyroid with coarse echotexture throughout. Nodule in the central gland measures 9 x 7 x 10 mm. Nodule has not increased or changed in size. There is an additional solid nodule in the lo wer pole measuring 10 x 7 x 8 mm. Additional hypoechoic nodule in the inferior anterior thyroid measu ring 10 x 5 x 9 mm. As compared to the prior study not significantly changed. Isthmus: 0.3 cm. IMPRESSION: 1. Mildly enlarged coarse echotexture throughout the thyroid. 2. Bilateral thyroid nodules. These nodules are not enlarging and largest nodules are 10 mm. No suspi cious nodules for which biopsy should be recommended. Continue with yearly ultrasound thyroid evaluat ions.
== END 2023-09-02 06:09 | disposition home or self-care (01) ==
LOC: RAD 06:09
PROVIDERS: PCP Family Medicine; Visit Provider Internal Medicine
DX: E04.2 Nontoxic multinodular goiter (principal)
CPT/HCPCS: 76536

== ENCOUNTER → 2024-09-14 09:49 | Outpatient (BNVA) | payer BC, SELFPAY | PROVIDERS: PCP Family Medicine; Visit Provider Family Medicine | DX: E04.9 Nontoxic goiter, unspecified (principal) | CPT/HCPCS: 80053; 84439; 84443; 85025 ==